=== PATIENT | male | born 1995 | race Caucasian/White ===

== ENCOUNTER 2021-01-06 15:08 | Emergency (ER) | payer OTHER, SELFPAY ==
--- NOTE | ~2021-01-06 | XR_ITS ---
XR abdomen/kub 1V 01/06/2021 18:22 Indication: Kidney stones. Procedure: KUB Comparison: CT dated 01/06/2021 Findings: There are bilateral renal stones. The distal left ureteral stone is not identified on KUB. Bowel gas pattern nonobstructive. No acute osseous abnormality. Impression: 1: Bilateral nephrolithiasis. Reviewed, dictated and finalized at location A. RDING ARTIST Impression: 1: Bilateral nephrolithiasis.
--- NOTE | ~2021-01-06 | CT_ITS ---
EXAMINATION: CT abdomen pelvis wo con DATE: 01/06/2021 15:57 INDICATION: Left flank pain. TECHNIQUE: Computed tomography (CT) of the abdomen and pelvis was performed without intravenous contr ast. Automated exposure control and iterative reconstruction technique were employed. The dose-length product was 287.11 mGy-cm. COMPARISON: None. FINDINGS: The visualized portions of the lung bases are clear without pneumonia or pleural effusion. The heart size is normal. No pericardial effusion. The liver, gallbladder, spleen, pancreas, and adre nal glands are normal. There are 5 stones in right kidney measuring up to 3 mm. There are 5 stones in left kidney measuring up to 3 mm. There is mild left hydronephrosis and hydroureter. There is a 4 mm stone at left ureterovesicular junction. There are no dilated loops of bowel. The appendix is not vi sualized. There are no pathologically enlarged lymph nodes. There is no free intraperitoneal fluid. T he bones are unremarkable. IMPRESSION: 1. 4 mm stone at left ureterovesicular junction with mild left hydronephrosis and hydroureter. 2. Small bilateral nonobstructing kidney stones. Reviewed, dictated and finalized at location B. UE SPECIALIST IMPRESSION: 1. 4 mm stone at left ureterovesicular junction with mild left hydronephrosis a nd hydroureter. 2. Small bilateral nonobstructing kidney stones.
[2021-01-06 15:22] VITALS: BP 130/74; PULSE 68; RESP 18; TEMP 36.2; O2SAT 98
[2021-01-06 16:14] LABS: Basophils Percent Auto 0.3 % (0.2-1.2); Hematocrit 42.4 % (42.0-52.0); Immature Granulocyte Absolute 0.02 K/mm3 (0.00-0.031); Immature Granulocyte Percent A 0.2 % (0-0.5); Lymphocytes Percent Auto 11.8 % (18.3-44.2); Mean Corpuscular HGB Conc 35.4 g/dl (32-36); Mean Corpuscular Volume 84.8 fl (80-100); Mean Platelet Volume 10.1 fl (7.4-10.4); Monocytes Absolute Auto 0.8 K/mm3 (0.1-0.6); Monocytes Percent Auto 7.5 % (2.6-8.5); Neutrophils Absolute Auto 8.2 K/mm3 (1.3-6.7); Neutrophils Percent Auto 80.2 % (45.5-73.1); Platelet Count Result 253 k/mm3 (150-375); Red Cell Distribution Width 12.4 % (11.5-14.5); White Blood Count 10.2 K/mm3 (4.5-10.0)
[2021-01-06] MEDS: ONDANSETRON INJ 4 MG/2 ML VIAL IV PUSH (16:15)
[2021-01-06] MEDS: SODIUM CHLORIDE 0.9% IV 1,000 ML 999 ML IV CONT (16:18)
[2021-01-06 16:26] LABS: Alanine Aminotransferase 20 U/L (4-50); Albumin Level 4.8 g/dL (3.5-5.1); Alkaline Phosphatase 82 U/L (38-126); Anion Gap 11 mmol/L (8-16); Aspartate Amino Transferase 29 U/L (17-59); Bilirubin,Total 0.7 mg/dL (0.2-1.3); Blood Urea Nitrogen 14 mg/dL (9-20); Calcium 9.7 mg/dL (8.4-10.2); Carbon Dioxide 22 mmol/L (22-30); Chloride 102 mmol/L (98-107); Estimated CRCL calculation 94 ml/min; Estimated Glomerular Filt Rate > 60; Glucose 116 mg/dL (65-110); Potassium 3.4 mmol/L (3.4-5.0); Sodium 135 mmol/L (137-145)
[2021-01-06] MEDS: KETOROLAC 30 MG/ML VIAL (*BKC) IV PUSH (16:33)
[2021-01-06 17:32] LABS: Add Urine Microscopic? YES; Appearance Urine Cloudy (Clear); Bacteria Urine Trace /hpf; Bilirubin Urine Negative (Negative); Blood Urine 3+ (Negative); Color Urine Yellow (Yellow); Glucose Urine UA Negative (Negative); Ketones Urine 1+ mg/dL (Negative); Leukocyte Esterase Ur Trace LEU/UL (Negative); Mucus Urine Rare /lpf; Nitrate Urine Negative (Negative); Protein Urine Negative (Negative); RBC Urine >75 /hpf (0-2); Specific Grav Ur 1.018 (1.001-1.035); Squamous Epithelial Cell Urine Rare /hpf (Few); WBC Urine 21-30 /hpf
--- NOTE | 2021-01-06 19:45 | ED.GENADULT ---
HPI - General Adult General Chief complaint: Back Pain/Injury Stated complaint: pretty sure I have kidney stone Time Seen by Provider: 01/06/21 15:33 Source: patient Mode of arrival: ambulatory Limitations: no limitations History of Present Illness HPI narrative: Patient with history of kidney stone presents with chief complaint of pain to the left flank and groin that began suddenly at approximately 2 AM this morning was accompanied by nausea and vomiting. Patient reports having a pain to the area approximately a week ago but then it went away so he concerned that he passed a stone. Patient reports that he has had other bouts of kidney stones and have been able to pass them all without complications. Patient reports presents the pain intensified and he was having persistent vomiting he presented to the emergency department. Patient denies fever, chills he reports he has had a little urination as he has not been able to keep down with fluids. Related Data Allergies Allergy/AdvReac Type Severity Reaction Status Date / Time No Known Allergies Allergy Unverified 10/01/16 14:08 Review of Systems Review of Systems: CONSTITUTIONAL: Denies fever, chills, or sweats. EYES: Denies visual changes, redness, or discharge. ENT: Denies rhinorrhea, congestion, sore throat, or otalgia. CARDIOVASCULAR: Denies chest pain, palpitations, or edema. RESPIRATORY: Denies cough or dyspnea. GASTROINTESTINAL: Reports left groin pain, nausea and vomiting denies abdominal pain or diarrhea. GENITOURINARY: Denies dysuria or hematuria. SKIN: Denies rash or itching. MUSCULOSKELETAL: Denies back pain, joint pain, or myalgia. NEUROLOGIC: Denies headache, numbness, dizziness, or weakness. PSYCHIATRIC: Denies anxiety or depression. Exam Narrative: GENERAL: Well-appearing, well-nourished, appears uncomfortable. HEAD: Normocephalic, atraumatic. EYES: PERRLA and EOMI. NECK: Supple. No adenopathy or masses. CHEST: Clear to auscultation. No respiratory distress. No wheezes rales or rhonchi HEART: Regular rate and rhythm. No murmur heard. Normal peripheral pulses. EXTREMITIES: Normal range of motion. No edema. SKIN: Warm, dry, no rash. NEURO: No focal deficits. Alert and oriented x3. PSYCH: Normal mood and affect. Course Vital Signs Vital signs: Vital Signs Temperature 97.1 F L 01/06/21 15:22 Pulse Rate 68 01/06/21 15:22 Respiratory Rate 18 01/06/21 15:22 Blood Pressure 130/74 01/06/21 15:22 Pulse Oximetry 98 01/06/21 15:22 Temperature 97.1 F L 01/06/21 15:22 Pulse Rate 68 01/06/21 15:22 Respiratory Rate 18 01/06/21 15:22 Blood Pressure 130/74 01/06/21 15:22 Pulse Oximetry 98 01/06/21 15:22 Medical Decision Making MDM Narrative Medical decision making narrative: Patient is much more comfortable after receiving Toradol and Zofran. Patient stone is 4 mm at the UVJ. Patient will be received Toradol, Flomax, Zofran and be directed to urology for further evaluation and management if symptoms persist. Patient instructed to return to emergency department if he has any worsening symptoms including but not limited to vomiting, intense pain, inability to urinate or any other symptoms of concern. Vital Signs Vital Signs: Vital Signs Temperature 97.1 F L 01/06/21 15:22 Pulse Rate 68 01/06/21 15:22 Respiratory Rate 18 01/06/21 15:22 Blood Pressure 130/74 01/06/21 15:22 Pulse Oximetry 98 01/06/21 15:22 Temperature 97.1 F L 01/06/21 15:22 Pulse Rate 68 01/06/21 15:22 Respiratory Rate 18 01/06/21 15:22 Blood Pressure 130/74 01/06/21 15:22 Pulse Oximetry 98 01/06/21 15:22 Lab Data Result diagrams: 01/06/21 16:09 01/06/21 16:09 Labs: Lab Results 01/06/21 01/06/21 01/06/21 Range/Units 16:09 16:09 17:11 WBC 10.2 H (4.5-10.0) K/mm3 RBC 5.00 (4.6-6.20) M/mm3 Hgb 15.0 (14.0-18.0) g/dL Hct 42.4 (42.0-52.0) % MCV 84.8 (80-100) fl MCH 30
== END 2021-01-06 19:07 | disposition home or self-care (01) ==
PROVIDERS: Emergency Provider Emergency Medicine
DX: N20.0 Calculus of kidney (principal)
CPT/HCPCS: 36415; 74018; 74176; 80053; 81001; 85025; 87086; 96361; 96374; 96375; 99284; J1885; J2405; J7030